=== PATIENT | male | born 1975 | race Caucasian/White ===

== ENCOUNTER → 2020-07-13 | Outpatient (CLI) | payer BC, SELFPAY ==
--- NOTE | 2020-07-13 15:56 | RAD_ITS ---
STUDY: X-RAY - LUMBAR SPINE REASON FOR EXAM: Male, 44 years old. PAIN IN LOWER BACK FOR SOMETIME RADIATES DOWN LEGS OFF AND ON WITH NUMBNESS. TECHNIQUE: 5 view(s) of the lumbar spine were obtained. COMPARISON: None FINDINGS: Normal lumbar lordosis. There is no substantial scoliosis. There is a normal alignment of the vertebrae. There is endplate spondylosis at L2-L5. There is moderately severe narrowing of the L4-5 disc space and mild narrowing of the L3-4 disc space. There is no demonstrated fracture. The soft tissue structures are unremarkable. RAD/L/S Spine Min 4 Views IMPRESSION: Narrowing of the L3-4 and L4-5 disc spaces. Electronically Signed: Tre Curiel MD at 21:16 EDT , Service support ,
== END | disposition home or self-care (01) ==
LOC: MTRAD 15:54
PROVIDERS: PCP Family Medicine; Referring Provider Family Medicine; Visit Provider Family Medicine
DX: M54.5 Low back pain (principal); G89.29 Other chronic pain
CPT/HCPCS: 72110